=== PATIENT | female | born 1975 | race Caucasian/White ===

== ENCOUNTER 2018-12-11 18:35 | Inpatient (IN) | payer BC ==
[2018-12-11] MEDS ORDERED: Nalbuphine 10 MG/1 ML Vial IVPUSH PRN (18:48)
[2018-12-11] MEDS ORDERED: Ampicillin 2 GM in Sodium Chloride 0.9% 100 ML IV ONE (18:48)
[2018-12-11] MEDS ORDERED: Sodium Chloride 0.9% 10 ML Syringe FLUSH PRN (18:48)
[2018-12-11] MEDS ORDERED: Lactated Ringers 1,000 ML ONE (18:54)
[2018-12-11] MEDS ORDERED: Ampicillin 2 GM AdvVial IV ONE (18:54)
[2018-12-11] MEDS ORDERED: Oxytocin/Lactated Ringers 10 UNIT/1,000 ML BAG IV SCH ×2 (19:00→21:46)
[2018-12-11] MEDS ORDERED: Lactated Ringers 1,000 ML IV SCH (19:00)
--- NOTE | 2018-12-11 19:13 | PCM.LDHP ---
L&D History of Present Illness - General Date of Service: 12/11/18 Admit Problem/Dx: Patient Status Order with Admit Dx/Problem 12/11/18 18:48 Patient Status [ADT] Routine Admission Diagnosis/Problem Admission Diagnosis/Problem Active labor Source of Information: Patient History Limitations: Reports: No Limitations - History of Present Illness Introduction:: Roberta Morel is a 43 year old female at 38 weeks 3 days by 17 week ultrasound (J[facility] 12/22/2018) who presents with concern for labor. Patient was seen in the clinic earlier today and was noted to be 5 cm dilated but not melony. She reports that after her appointment she started to have increased frequency of contractions and they were getting stronger as well. By the time she arrived to the hospital they were about every 4-5 minutes apart and she was having to breathe through them. She denied any leaking of fluid but was having small amount of pink tinged discharge with the contractions. While she was being admitted she had spontaneous rupture of membranes with clear fluid. She reports good movement since she was seen in the clinic today. Timing/Duration: Reports: gradual onset, getting worse (every 2-4 minutes and getting closer together) Location, : Reports: Abdomen, Pelvic Quality: Reports: Pressure, Throbbing Severity: Severe Improves with: Reports: None Worsens with: Reports: None Associated Symptoms: Reports: vaginal bleeding, vaginal fluid (spontaneous rupture of membranes) Present Illness Comments:: Roberta Morel is a 43-year-old at 38 weeks 3 days by 17 week ultrasound (JIE 12/22/2018) with active labor and spontaneous rupture membranes. She has had regular care with myself starting at 17 weeks gestation. She received TDaP vaccine on 10/23/2018. Her is complicated by: * History of section 1 with successful delivery 3. Desires trial of labor after * GBS bacteriuria and will need antibiotic prophylaxis in labor * Grand multiparity with 8 previous deliveries and 7 vaginal deliveries * Advance maternal age with normal [place] NIPS * Plans to give this child up for adoption. * Tobacco use in with 0.5 PPD. Patient has tried bupropion and nicotine patches during but these did not work well for her. She is interested in trying nicotine patch again and thinks that will work better at this time. * Elevated 1 hour glucose tolerance test with normal 3 hour glucose test * Trichomonas infection in that was treated labs Blood type: O+ Antibody screen: Negative Second trimester hematocrit/hemoglobin: 35.3%/11.1 on 07/18/2018 Platelets: 220 on 07/18/2018 Urine culture: Mixed jessica suggestive of contamination. Subsequent urine culture showed GBS bacteriuria Rubella status: Immune Hepatitis B surface antigen: Negative RPR: Negative HIV: Negative Gonorrhea: Negative Chlamydia: Negative Anatomy ultrasound: Normal anatomy ultrasound completed over the course of 2 ultrasounds. The spine heart and face were not seen initially. Normal on second ultrasound. Anterior placenta. EFW 61st percentile initially and on repeat was 59th percentile. Anatomy ultrasounds were done on 08/19/2018 end 2018. One hour glucose tolerance test: 194 Three-hour glucose tolerance test: Fasting 81, 1 hour 167, 2 hour 109 and 3 hour 84 Third trimester hematocrit/hemoglobin: 34.9%/11.1 on 09/24/2018 Platelets: 231 on 09/24/2018 GBS status: Positive GBS bacteriuria Genetic testing: Normal [place] NIPS testing - Related Data Allergies/Adverse Reactions: Allergies Allergy/AdvReac Type Severity Reaction Status Date / Time No Known Allergies Allergy Verified 12/11/18 18:53 Past Medical History [employer] History: Reports: : 13 Para: 8 Hematologic History: Reports: Anemia - Past Surgical History Female Surgical History: Reports: Section (x 1 in 2005) Social & Family History - Tobacco Use Smoking Status *Q: Current Every Day Smoker Tobacco Use Within Last Twelve Months: Cigarettes Packs/Tins Daily: 0.5 Smoking Cessation Information Provided To Patient: Yes - Tobacco Core Measures Tobacco Use/Smoking Within Last 30 Days: Yes Smoking Frequency Within Last 30 Days: Reports: Five or More Cigarettes Per Day Desires Tobacco Cessation Medication: Yes Desired Tobacco Cessation Medication: Nicotine patch - Alcohol Use Alcohol Use History: No - Recreational Drug Use Recreational Drug Use: Yes Drug Use in Last 12 Months: No - Living Situation & Occupation Living situation: Reports: , with Spouse H&P Review of Systems - Review of Systems: Review Of Systems: See Below General: Denies: Fever, Chills, Malaise, Weakness, Fatigue HEENT: Denies: Headaches, Rhinitis, Post Nasal Drip, Sinus Congestion, Sore Throat, Visual Changes Pulmonary: Reports: Cough. Denies: Shortness of Breath, Wheezing Cardiovascular: Denies: Chest Pain, Palpitations, Dyspnea on Exertion, Orthopnea Gastrointestinal: Denies: Abdominal Pain, Constipation, Diarrhea, Nausea, Vomiting Genitourinary: Denies: Dysuria, Frequency, Burning, Pain, Urgency Musculoskeletal: Reports: Back Pain (And hip pain of ) Skin: Reports: Lesions (Social areas of folliculitis in the inguinal fold). Denies: Rash Psychiatric: Denies: Depression, Anxiety Hematologic/Lymphatic: Reports: Anemia L&D Exam - Exam Exam: See Below - Vital Signs Weight: 103.782 kg - OB Specific Fundal Height In cm: 40 Contraction Duration (sec): 60 Contraction Frequency (min): 2-3 Contraction Intensity: Strong Movement: Active Heart Tones: Present Heart Tones per Min: 150 (+15 x 15 accelerations, recurrent variable decelerations) Heart Rate (FHR) Variability: Moderate (6-25 bmp) Presentation: Vertex Estimated Weight: 7.5-8 pounds by Umair's - Wang Score Wang Score Cervix Position: Anterior Wang Score Consistency: Soft Wang Score Effacement: >80% (100%) Wang Score Dilation: > 5 cm (6 cm on admission) Wang Score 's Station: +1, +2 (+1) Wang Score Total: 13 - Exam General: Alert, Oriented, Moderate Distress (With contractions) HEENT: Conjunctiva Clear, EOMI Neck: Supple, Trachea Midline Lungs: Clear to Auscultation, Normal Respiratory Effort Cardiovascular: Regular Rate, Regular Rhythm GI/Abdominal Exam: Soft, Non-Tender, No Distention, Other (gravid). No: Guarding, Rigid, Rebound Genitourinary: Normal external exam, Other (spontaneous rupture of membranes with large amount of clear fluid shortly after arrival) Extremities: Normal Inspection, No Pedal Edema Skin: Warm, Dry, Intact Psychiatric: Alert, Normal Affect, Normal Mood - Problem List (1) 38 weeks gestation of SNOMED Code(s): 28589888 ICD Code: Z3A.38 - 38 WEEKS GESTATION OF Status: Acute Current Visit: Yes (2) GBS bacteriuria SNOMED Code(s): 38823410 ICD Code: R82.71 - BACTERIURIA Status: Acute Current Visit: Yes (3) Advanced maternal age in multigravida SNOMED Code(s): 164387112 ICD Code: O09.529 - SUPERVISION OF ELDERLY MULTIGRAVIDA, UNSPECIFIED TRIMESTER Status: Acute Current Visit: Yes (4) Tobacco use affecting , antepartum SNOMED Code(s): 770383024, 278066304, 236915900 ICD Code: O99.330 - SMOKING (TOBACCO) COMPLICATING , UNSP TRIMESTER Status: Acute Current Visit: Yes (5) History of delivery, currently SNOMED Code(s): 936514330, 084937038 ICD Code: O34.219 - MATERNAL CARE FOR UNSP TYPE SCAR FROM PREVIOUS DEL Status: Acute Current Visit: Yes (6) History of delivery SNOMED Code(s): 948052479 ICD Code: Z98.891 - HISTORY OF UTERINE SCAR FROM PREVIOUS SURGERY Status: Acute Current Visit: Yes (7) with adoption planned, currently in third trimester SNOMED Code(s): 59443162, 83720693, 481880966 ICD Code: Z34.93 - ENCNTR FOR SUPRVSN OF NORMAL PREG, UNSP, THIRD TRIMESTER Status: Acute Current Visit: Yes (8) Abnormal glucose tolerance test during , antepartum Status: Acute Current Visit: Yes Problem List Initiated/Reviewed/Updated: Yes Orders Last 24hrs: Active Orders 24 hr Category Date Time Status Patient Status [ADT] Routine ADT 12/11/18 18:48 Active Activity as Tolerated [RC] PFP Care 12/11/18 18:48 Active Communication Order [RC] ASDIRECTED Care 12/11/18 18:48 Active Heart Tones [RC] ASDIRECTED Care 12/11/18 18:49 Active Non Stress Test [RC] PER UNIT ROUTINE Care 12/11/18 18:48 Active Notify Provider [RC] PFP Care 12/11/18 18:48 Active Notify Provider [RC] PRN Care 12/11/18 18:48 Active Peripheral IV Care [RC] . DIRECTED Care 12/11/18 18:49 Active Pump Management, Intrathecal [RC] ASDIRECTED Care 12/11/18 18:49 Active Urinary Catheter Assessment [RC] ASDIRECTED Care 12/11/18 18:48 Active Vital Signs [RC] PER UNIT ROUTINE Care 12/11/18 18:48 Active CBC W/O DIFF,HEMOGRAM [HEME] Stat Lab 12/11/18 18:48 Ordered RAPID PLASMA REAGIN,RPR [CHEM] Stat Lab 12/11/18 18:48 Ordered TYPE AND SCREEN [BBK] Stat Lab 12/11/18 18:48 Ordered Ampicillin 1 gm Med 12/11/18 23:00 Active Sodium Chloride 0.9% [Normal Saline] 100 ml IV Q4H Ampicillin 2 gm Med 12/11/18 18:48 Active Sodium Chloride 0.9% [Normal Saline] 100 ml IV ONETIME Lactated Ringers [Ringers, Lactated] 1,000 ml Med 12/11/18 19:00 Active IV ASDIRECTED Nalbuphine [Nubain] Med 12/11/18 18:48 Active 10 mg IVPUSH Q2H PRN Oxytocin/Lactated Ringers [Pitocin in LR 10 Units/1,000 Med 12/11/18 19:00 Active ML] 10 unit in 1,000 ml IV .CONTINUOUS Sodium Chloride 0.9% [Saline Flush] Med 12/11/18 18:48 Active 10 ml FLUSH ASDIRECTED PRN Electronic Heart Tones Ext w TOCO [WOMSER] Oth 12/11/18 18:48 Ordered Routine Electronic Heart Tones Internal [WOMSER] Per Unit Oth 12/11/18 18:48 Ordered Routine Peripheral IV Insertion Adult [OM.PC] Routine Oth 12/11/18 18:48 Ordered Resuscitation Status Routine Resus Stat 12/11/18 18:48 Ordered Medication Orders Ampicillin Sodium 2 gm/ Sodium (Chloride) 100 mls @ 200 mls/hr IV ONETIME ONE Stop: 12/11/18 19:17 Ampicillin Sodium 1 gm/ Sodium (Chloride) 100 mls @ 200 mls/hr IV Q4H MARI Lactated Ringer's (Ringers, Lactated) 1,000 mls @ 100 mls/hr IV ASDIRECTED MARI Oxytocin/Lactated Ringer's (Pitocin In Lr 10 Units/1,000 Ml) 10 unit in 1,000 mls @ 500 mls/hr IV .CONTINUOUS MARI Nalbuphine HCl (Nubain) 10 mg IVPUSH Q2H PRN PRN Reason: Pain Sodium Chloride (Saline Flush) 10 ml FLUSH ASDIRECTED PRN PRN Reason: Keep Vein Open Assessment/Plan Comment:: Refer to observation for spontaneous rupture of membranes Continuous monitoring Place IV and have Lactated Ringer's at 125 ml/hr May have small amounts of regular diet Activity as tolerated May have Nubain or epidural as needed for anesthesia Plans to breast-feed after delivery Start on ampicillin 2 g now and have 1 g every 4 hours after for GBS prophylaxis Consults social work and case management for assistance with adoption process that has been initiated prior to delivery Anticipate vaginal delivery unless otherwise indicated Newton Silva M.D. 7:36 PM 12/11/2018
[2018-12-11] MEDS ORDERED: HYDROmorphone 0.5 MG/0.5 ML Syringe IVPUSH ONE (20:04)
--- NOTE | 2018-12-11 20:33 | PCM.DEL ---
L & D Note - General Info Date of Service: 12/11/18 Mother's Due Date: 12/22/18 - Delivery Note Labor: Spontaneous Delivery Outcome: Livebirth Infant Delivery Method: Spontaneous Vaginal Delivery-Single Presentation: Right Occiput Anterior (SHIKHA) Nuchal Cord: Present (x 1), Reduced Anesthesia Type: None Amniotic Fluid Description: Clear Episiotomy Type: None Laceration: 1st Degree, Perineal (midline, repaired with 3-0 Vicryl) Suture type: Vicryl Suture size: 3-0 Placenta: Intact, Spontaneous Cord: 3 Vessels Estimated Blood Loss: 300 Resuscitation Needed: Yes [place]: Suctioned, Bulb Syringe, Cathether, Stimulated, Warmed, [place] Used, Warmer Used Provider: Newton Silva Score 1 min: 6 Score 5 min: 9 Second Stage Interventions: Reports: Pushing Involuntarily Delivery Comments (Free Text/Narrative):: Stage I: Roberta Morel was admitted for active labor. On admission her cervix was dilated to 6 cm. She was GBS positive and was started on ampicillin for GBS prophylaxis. She received 1 dose prior to delivery. Shortly after admission she had spontaneous rupture membranes with clear fluid. She quickly progressed to complete and pushing. Stage II: On 12/11/2018 she had an uncomplicated vaginal delivery after section of a live male at 19:54. Apgars of 6 & 9. Weight of 3110 g (6 lbs 13.7 oz). Length of 20 inches. There was a single nuchal cord that was reduced prior to delivery. Infant was delivered in SHIKHA position. The cord was doubly clamped and cut by myself. was taken to the warmer for resuscitation. Stage III: She had a spontaneous delivery of an intact placenta in [place] presentation. Three vessel cord. She was given pitocin and fundal massage. She had a first-degree midline perineal laceration that was repaired with 3-0 Vicryl. There were vaginal abrasions on the skin as well that were hemostatic and not repaired. Mom and baby were stable to recovery. EBL of 300 mL. Newton Silva MD 8:28 PM 12/11/2018 - General Info Date of Service: 12/11/18 - Patient Data Weight - Most Recent: 103.782 kg Lab Results Last 24 Hours: Laboratory Results - last 24 hr 12/11/18 12/11/18 Range/Units 19:13 19:13 WBC 10.36 H (3.98-10.04) K/mm3 RBC 5.02 (3.98-5.22) M/mm3 Hgb 11.0 L (11.2-15.7) gm/L Hct 35.1 (34.1-44.9) % MCV 69.9 L (79.4-94.8) fl MCH 21.9 L (25.6-32.2) pg MCHC 31.3 L (32.2-35.5) g/dl RDW Std Deviation 45.4 (36.4-46.3) fL Plt Count 223 (182-369) K/mm3 MPV 12.0 (9.4-12.3) fl Blood Type O POSITIVE Gel Antibody Screen Negative Med Orders - Current: Current Medications Ampicillin Sodium 1 gm/ Sodium (Chloride) 100 mls @ 200 mls/hr IV Q4H MARI Lactated Ringer's (Ringers, Lactated) 1,000 mls @ 100 mls/hr IV ASDIRECTED MARI Last Admin: 12/11/18 19:11 Dose: 100 mls/hr Oxytocin/Lactated Ringer's (Pitocin In Lr 10 Units/1,000 Ml) 10 unit in 1,000 mls @ 500 mls/hr IV .CONTINUOUS MARI Last Admin: 12/11/18 20:14 Dose: 500 mls/hr Nalbuphine HCl (Nubain) 10 mg IVPUSH Q2H PRN PRN Reason: Pain Last Admin: 12/11/18 19:15 Dose: 10 mg Sodium Chloride (Saline Flush) 10 ml FLUSH ASDIRECTED PRN PRN Reason: Keep Vein Open Discontinued Medications Ampicillin Sodium (Ampicillin) Confirm Administered Dose 2 gm IV .STK-MED ONE Stop: 12/11/18 18:55 Hydromorphone HCl (Dilaudid) 0.5 mg IVPUSH ONETIME ONE Stop: 12/11/18 20:05 Last Admin: 12/11/18 20:15 Dose: 0.5 mg Ampicillin Sodium 2 gm/ Sodium (Chloride) 100 mls @ 200 mls/hr IV ONETIME ONE Stop: 12/11/18 19:17 Last Admin: 12/11/18 19:11 Dose: 200 mls/hr Lactated Ringer's (Ringers, Lactated) Confirm Administered Dose 1,000 mls @ as directed .ROUTE .[facility] ONE Stop: 12/11/18 18:55 - Problem List & Annotations (1) 38 weeks gestation of SNOMED Code(s): 89658010 Code(s): Z3A.38 - 38 WEEKS GESTATION OF Status: Acute Current Visit: Yes (2) GBS bacteriuria SNOMED Code(s): 05509897 Code(s): R82.71 - BACTERIURIA Status: Acute Current Visit: Yes (3) Advanced maternal age in multigravida SNOMED Code(s): 968485262 Code(s): O09.529 - SUPERVISION OF ELDERLY MULTIGRAVIDA, UNSPECIFIED TRIMESTER Status: Acute Current Visit: Yes (4) Tobacco use affecting , antepartum SNOMED Code(s): 865897740, 965660205, 220464791 Code(s): O99.330 - SMOKING (TOBACCO) COMPLICATING , UNSP TRIMESTER Status: Acute Current Visit: Yes (5) History of delivery, currently SNOMED Code(s): 420681300, 612263044 Code(s): O34.219 - MATERNAL CARE FOR UNSP TYPE SCAR FROM PREVIOUS DEL Status: Acute Current Visit: Yes (6) History of delivery SNOMED Code(s): 787122499 Code(s): Z98.891 - HISTORY OF UTERINE SCAR FROM PREVIOUS SURGERY Status: Acute Current Visit: Yes (7) with adoption planned, currently in third trimester SNOMED Code(s): 82347341, 76297888, 594115791 Code(s): Z34.93 - ENCNTR FOR SUPRVSN OF NORMAL PREG, UNSP, THIRD TRIMESTER Status: Acute Current Visit: Yes (8) Abnormal glucose tolerance test during , antepartum Status: Acute Current Visit: Yes (9) Vaginal delivery SNOMED Code(s): 077461848 Code(s): O80 - ENCOUNTER FOR FULL-TERM UNCOMPLICATED DELIVERY Status: Acute Current Visit: Yes (10) Vaginal delivery following previous section, delivered SNOMED Code(s): 701290289 Code(s): O34.219 - MATERNAL CARE FOR UNSP TYPE SCAR FROM PREVIOUS DEL Status: Acute Current Visit: Yes (11) First degree perineal laceration during delivery SNOMED Code(s): 001221462 Code(s): O70.0 - FIRST DEGREE PERINEAL LACERATION DURING DELIVERY Status: Acute Current Visit: Yes - Problem List Review Problem List Initiated/Reviewed/Updated: Yes - My Orders Last 24 Hours: My Active Orders 12/11/18 18:48 Patient Status [ADT] Routine Activity as Tolerated [RC] PFP Communication Order [RC] ASDIRECTED Non Stress Test [RC] PER UNIT ROUTINE Notify Provider [RC] PFP Notify Provider [RC] PRN Urinary Catheter Assessment [RC] ASDIRECTED Vital Signs [RC] PER UNIT ROUTINE Nalbuphine [Nubain] 10 mg IVPUSH Q2H PRN Sodium Chloride 0.9% [Saline Flush] 10 ml FLUSH ASDIRECTED PRN Electronic Heart Tones Ext w TOCO [WOMSER] Routine Electronic Heart Tones Internal [WOMSER] Per Unit Routine Peripheral IV Insertion Adult [OM.PC] Routine Resuscitation Status Routine 12/11/18 18:49 Heart Tones [RC] ASDIRECTED Peripheral IV Care [RC] . DIRECTED Pump Management, Intrathecal [RC] ASDIRECTED 12/11/18 19:00 Lactated Ringers [Ringers, Lactated] 1,000 ml IV ASDIRECTED Oxytocin/Lactated Ringers [Pitocin in LR 10 Units/1,000 ML] 10 unit in 1,000 ml IV .CONTINUOUS 12/11/18 19:13 RAPID PLASMA REAGIN,RPR [CHEM] Stat 12/11/18 20:20 Patient Status Manage Transfer [TRANSFER] Routine 12/11/18 23:00 Ampicillin 1 gm Sodium Chloride 0.9% [Normal Saline] 100 ml IV Q4H - Plan Plan:: Admit to inpatient following normal spontaneous vaginal delivery Continue Pitocin per unit protocol following delivery of placenta and lactated Ringer's until tolerating regular diet Regular diet Vitals per unit routine Ibuprofen and Tylenol for pain control Patient plans for bottlefeeding infant. Assist as needed with mother and the adoptive parents. Continue to monitor lochia Social work and case management consult to assist with completion of the adoption process Anticipate discharge home on day #1 or #2 Newton Silva MD 8:28 PM 12/11/2018
[2018-12-11] MEDS ORDERED: Hydrocortisone Acetate 25 MG Supp RECTAL PRN (21:46)
[2018-12-11] MEDS ORDERED: Docusate Sodium 100 MG Cap PO PRN (21:46)
[2018-12-11] MEDS ORDERED: Acetaminophen 325 MG Tab PO PRN (21:46)
[2018-12-11] MEDS ORDERED: Witch Hazel Medicated Pads 40/Jar TOP PRN (21:46)
[2018-12-11] MEDS ORDERED: Benzocaine/Menthol 20%-0.5% Spray 56 GM Canister TOP PRN (21:46)
[2018-12-11] MEDS ORDERED: Lanolin 100% Cream 7 GM Tube TOP PRN (21:46)
[2018-12-11] MEDS ORDERED: Magnesium Hydroxide 400 MG/5 ML Susp 30 ML Cup PO PRN (21:46)
[2018-12-11] MEDS: Nicotine 21 MG/24 Hr Patch TRDERM SCH (22:38)
[2018-12-11] MEDS: Ibuprofen 600 MG Tab PO PRN (22:39)
[2018-12-11] MEDS ORDERED: Ampicillin 1 GM in Sodium Chloride 0.9% 100 ML IV SCH (23:00)
--- NOTE | 2018-12-12 08:09 | PCM.SN ---
- Free Text/Narrative Note: Post Progress Note PPD # 1 Subjective: Doing well overall. Ambulating without difficulty. Lochia minimal. Voiding without difficulty. Tolerating regular diet without nausea or vomiting. Pain controlled with oral medications. Bottlefeeding with minimal difficulty. Objective: Vitals: Vital Signs - 24 hr 12/11/18 12/12/18 18:48 01:49 Temperature 36.2 C Temperature [ 37.4 C Temporal] Pulse, 73 Peripheral Pulse, 85 Peripheral [ Pulse Oximetry] Respiratory 14 16 Rate Blood Pressure 125/88 Blood Pressure 143/80 H [Left Arm] O2 Sat by Pulse 99 97 Oximetry Physical Exam General: Alert and oriented, no acute distress Lungs: Clear to auscultation bilaterally Heart: Regular rate and rhythm Abdomen: Soft, minimal appropriate tenderness, non-distended, fundus midline, nontender, and at the umbilicus Extremities: Trace edema in bilateral lower extremities to mid shins Laboratory Tests 12/11/18 12/11/18 Range/Units 19:13 19:13 WBC 10.36 H (3.98-10.04) K/mm3 RBC 5.02 (3.98-5.22) M/mm3 Hgb 11.0 L (11.2-15.7) gm/L Hct 35.1 (34.1-44.9) % MCV 69.9 L (79.4-94.8) fl MCH 21.9 L (25.6-32.2) pg MCHC 31.3 L (32.2-35.5) g/dl RDW Std Deviation 45.4 (36.4-46.3) fL Plt Count 223 (182-369) K/mm3 MPV 12.0 (9.4-12.3) fl Blood Type O POSITIVE Gel Antibody Screen Negative ASSESSMENT: 43-year-old female G 13 [id number] s/p vaginal delivery after section PPD #1 , complicated by GBS bacteriuria with one dose for antibiotic prophylaxis prior to delivery, advanced maternal age with normal [place] NIPS, patient giving child up for adoption, tobacco use in currently using nicotine patch and working well, Trichomonas infection in and elevated 1 hour glucose test with normal 3 hour test PLAN: Doing well Bottle feeding with minimal difficulty. Assist as needed Lochia minimal. Continue to monitor for appropriate lochia. Continue routine care Social work and case management consult for completion of adoption process Patient using nicotine patch for tobacco use in . She reports that this is working well for her. Discharge home today Newton Silva MD 8:08 AM 12/12/2018
--- NOTE | 2018-12-12 08:18 | PCM.DCSUM1 ---
Discharge Summary - Hospital Course Free Text/Narrative:: - Delivery Note Labor: Spontaneous Delivery Outcome: Livebirth Infant Delivery Method: Spontaneous Vaginal Delivery-Single Presentation: Right Occiput Anterior (SHIKHA) Nuchal Cord: Present (x 1), Reduced Anesthesia Type: None Amniotic Fluid Description: Clear Episiotomy Type: None Laceration: 1st Degree, Perineal (midline, repaired with 3-0 Vicryl) Suture type: Vicryl Suture size: 3-0 Placenta: Intact, Spontaneous Cord: 3 Vessels Estimated Blood Loss: 300 Resuscitation Needed: Yes : Suctioned, Bulb Syringe, Cathether, Stimulated, Warmed, [place] Used, Warmer Used Provider: Newton Silva Score 1 min: 6 Score 5 min: 9 Second Stage Interventions: Reports: Pushing Involuntarily Delivery Comments (Free Text/Narrative):: Stage I: Roberta Morel was admitted for active labor. On admission her cervix was dilated to 6 cm. She was GBS positive and was started on ampicillin for GBS prophylaxis. She received 1 dose prior to delivery. Shortly after admission she had spontaneous rupture membranes with clear fluid. She quickly progressed to complete and pushing. Stage II: On 12/11/2018 she had an uncomplicated vaginal delivery after section of a live male infant at 19:54. Apgars of 6 & 9. Weight of 3110 g (6 lbs 13.7 oz). Length of 20 inches. There was a single nuchal cord that was reduced prior to delivery. was delivered in SHIKHA position. The cord was doubly clamped and cut by myself. was taken to the warmer for resuscitation. Stage III: She had a spontaneous delivery of an intact placenta in [place] presentation. Three vessel cord. She was given pitocin and fundal massage. She had a first-degree midline perineal laceration that was repaired with 3-0 Vicryl. There were vaginal abrasions on the skin as well that were hemostatic and not repaired. Mom and baby were stable to recovery. EBL of 300 mL. HPI Initial Comments: - Delivery Note Labor: Spontaneous Delivery Outcome: Livebirth Delivery Method: Spontaneous Vaginal Delivery-Single Presentation: Right Occiput Anterior (SHIKHA) Nuchal Cord: Present (x 1), Reduced Anesthesia Type: None Amniotic Fluid Description: Clear Episiotomy Type: None Laceration: 1st Degree, Perineal (midline, repaired with 3-0 Vicryl) Suture type: Vicryl Suture size: 3-0 Placenta: Intact, Spontaneous Cord: 3 Vessels Estimated Blood Loss: 300 Resuscitation Needed: Yes [place]: Suctioned, Bulb Syringe, Cathether, Stimulated, Warmed, [place] Used, Warmer Used Provider: Newton Silva Score 1 min: 6 Score 5 min: 9 Second Stage Interventions: Reports: Pushing Involuntarily Delivery Comments (Free Text/Narrative):: Stage I: Roberta Morel was admitted for active labor. On admission her cervix was dilated to 6 cm. She was GBS positive and was started on ampicillin for GBS prophylaxis. She received 1 dose prior to delivery. Shortly after admission she had spontaneous rupture membranes with clear fluid. She quickly progressed to complete and pushing. Stage II: On 12/11/2018 she had an uncomplicated vaginal delivery after section of a live male infant at 19:54. Apgars of 6 & 9. Weight of 3110 g (6 lbs 13.7 oz). Length of 20 inches. There was a single nuchal cord that was reduced prior to delivery. was delivered in SHIKHA position. The cord was doubly clamped and cut by myself. Infant was taken to the warmer for resuscitation. Stage III: She had a spontaneous delivery of an intact placenta in [place] presentation. Three vessel cord. She was given pitocin and fundal massage. She had a first-degree midline perineal laceration that was repaired with 3-0 Vicryl. There were vaginal abrasions on the skin as well that were hemostatic and not repaired. Mom and baby were stable to recovery. EBL of 300 mL. Brief History: - Delivery Note. Labor: Spontaneous. Delivery Outcome: Livebirth. Delivery Method: Spontaneous Vaginal Delivery-Single. Presentation: Right Occiput Anterior (SHIKHA). Nuchal Cord: Present (x 1), Reduced. Anesthesia Type: None. Amniotic Fluid Description: Clear. Episiotomy Type: None. Laceration: 1st Degree, Perineal (midline, repaired with 3-0 Vicryl). Suture type: Vicryl. Suture size: 3-0. Placenta: Intact, Spontaneous. Cord: 3 Vessels. Estimated Blood Loss: 300. Resuscitation Needed : Yes. : Suctioned, Bulb Syringe, Cathether, Stimulated, Warmed, [place] Used, Warmer Used. Provider: Newton Silva. Score 1 min : 6. Score 5 min: 9. Second Stage Interventions: Reports: Pushing Involuntarily. Delivery Comments (Free Text/Narrative):: Stage I: Roberta Morel was admitted for active labor. On admission her cervix was dilated to 6 cm. She was GBS positive and was started on ampicillin for GBS prophylaxis. She received 1 dose prior to delivery. Shortly after admission she had spontaneous rupture membranes with clear fluid. She quickly progressed to complete and pushing. Stage II: On 12/11/2018 she had an uncomplicated vaginal delivery after section of a live male at 19:54. Apgars of 6 & 9. Weight of 3110 g (6 lbs 13.7 oz). Length of 20 inches. There was a single nuchal cord that was reduced prior to delivery. Infant was delivered in SHIKHA position. The cord was doubly clamped and cut by myself. was taken to the warmer for resuscitation. Stage III: She had a spontaneous delivery of an intact placenta in [place] presentation. Three vessel cord. She was given pitocin and fundal massage. She had a first-degree midline perineal laceration that was repaired with 3-0 Vicryl. There were vaginal abrasions on the skin as well that were hemostatic and not repaired. Mom and baby were stable to recovery. EBL of 300 mL. Diagnosis: Stroke: No - Discharge Data Discharge Date: 12/12/18 Discharge Disposition: Home, Self-Care 01 Condition: Good - Discharge Diagnosis/Problem(s) (1) 38 weeks gestation of SNOMED Code(s): 40438019 ICD Code: Z3A.38 - 38 WEEKS GESTATION OF Status: Acute Current Visit: Yes (2) GBS bacteriuria SNOMED Code(s): 52613816 ICD Code: R82.71 - BACTERIURIA Status: Acute Current Visit: Yes (3) Advanced maternal age in multigravida SNOMED Code(s): 604335689 ICD Code: O09.529 - SUPERVISION OF ELDERLY MULTIGRAVIDA, UNSPECIFIED TRIMESTER Status: Acute Current Visit: Yes (4) Tobacco use affecting , antepartum SNOMED Code(s): 084438622, 241287605, 928947958 ICD Code: O99.330 - SMOKING (TOBACCO) COMPLICATING , UNSP TRIMESTER Status: Acute Current Visit: Yes (5) History of delivery, currently SNOMED Code(s): 999813370, 926002798 ICD Code: O34.219 - MATERNAL CARE FOR UNSP TYPE SCAR FROM PREVIOUS DEL Status: Acute Current Visit: Yes (6) History of delivery SNOMED Code(s): 164116661 ICD Code: Z98.891 - HISTORY OF UTERINE SCAR FROM PREVIOUS SURGERY Status: Acute Current Visit: Yes (7) with adoption planned, currently in third trimester SNOMED Code(s): 37567592, 75800981, 710654595 ICD Code: Z34.93 - ENCNTR FOR SUPRVSN OF NORMAL PREG, UNSP, THIRD TRIMESTER Status: Acute Current Visit: Yes (8) Abnormal glucose tolerance test during , antepartum Status: Acute Current Visit: Yes (9) Vaginal delivery SNOMED Code(s): 816823150 ICD Code: O80 - ENCOUNTER FOR FULL-TERM UNCOMPLICATED DELIVERY Status: Acute Current Visit: Yes (10) Vaginal delivery following previous section, delivered SNOMED Code(s): 609163648 ICD Code: O34.219 - MATERNAL CARE FOR UNSP TYPE SCAR FROM PREVIOUS DEL Status: Acute Current Visit: Yes (11) First degree perineal laceration during delivery SNOMED Code(s): 791802961 ICD Code: O70.0 - FIRST DEGREE PERINEAL LACERATION DURING DELIVERY Status: Acute Current Visit: Yes - Patient Summary/Data Complications: None Consults: Consultations 12/11/18 21:46 Consult to Case Management/Regional Extension Service Specialist [CONS] Routine Hospital Course: Roberta Morel was admitted for active labor. On admission her cervix was dilated to 6 cm. She was GBS positive with GBS bacteriuria. She was started on ampicillin and received a total of 1 dose prior to delivery. She had spontaneous rupture of membranes shortly after admission with clear fluid. She progressed to complete and began pushing. On 12/11/2018 she had a uncomplicated vaginal delivery after section of a live male infant at 19:54. Apgars of 6 and 9. Weight of 3110 g (6 pounds 13.7 ounces). Her course was uneventful. Her pain was well controlled and she had minimal lochia. She was ambulating, tolerating a regular diet and voiding normally. She was bottlefeeding with minimal difficulty. She was afebrile and her hematocrit was 35.1 on admission. Patient is planning to give this child up for adoption. Patient will work with case management and transition social worker to complete the adoption process prior to discharge. She desired to be discharged home on the morning of PPD #1. Her blood type is O+. - Patient Instructions Diet: Regular Diet as Tolerated Activity: Apply Ice, As Tolerated Activity, Other: Nothing in the vagina for 6 weeks Driving: May Drive Today Showering/Bathing: May Shower Notify Provider of: Fever, Increased Pain, Swelling and Redness, Drainage, Nausea and/or Vomiting Other/Special Instructions: Please contact your physician's office if you have heavy vaginal bleeding enough to soak a pad in less than an hour for several hours. Monitor for any signs of an infection in the breasts with severe pain or redness of the breast. To reduce milk production recommend use of a tight fitting sports bra or Esau bandage wrapped. Also recommend use of cold compress. Avoid nipple stimulation to reduce milk production as well. - Discharge Plan *PRESCRIPTION DRUG MONITORING PROGRAM REVIEWED*: Not Applicable *COPY OF PRESCRIPTION DRUG MONITORING REPORT IN PATIENT FRIDA: Not Applicable Home Medications: Home Meds Vit No.130/Iron/FA [ Tablet] 1 each PO DAILY 12/11/18 [History] Acetaminophen [Tylenol] 650 mg PO Q6H PRN tablet 12/12/18 [Rx] Benzocaine/Menthol [Dermoplast Pain Relief [place]] 1 spray TOP ASDIRECTED PRN canister 12/12/18 [Rx] Docusate Sodium [Colace] 100 mg PO BID PRN cap 12/12/18 [Rx] Hydrocortisone Acetate [Anucort-HC] 25 mg RECTAL BID PRN supp 12/12/18 [Rx] Ibuprofen [Motrin] 600 mg PO Q6H PRN tablet 12/12/18 [Rx] Nicotine [Habitrol] 21 mg TRDERM DAILY patch 12/12/18 [Rx] Remove Patch 1 ea TRDERM DAILY each 12/12/18 [Rx] [place] Gloria [Tucks] 1 pad TOP ASDIRECTED PRN pad 12/12/18 [Rx] Patient Handouts: Vaginal Delivery, Care After, Care of a Perineal Tear Referrals: Newton Silva MD [Primary Care Provider] - (Follow-up in 2 weeks for routine visit or earlier as needed.) - Discharge Summary/Plan Comment DC Time >30 min.: No - Patient Data Vitals - Most Recent: Last Vital Signs Temp 36.2 C 12/12/18 01:49 Pulse 73 12/12/18 01:49 Resp 16 12/12/18 01:49 BP 125/88 12/12/18 01:49 Pulse Ox 97 12/12/18 01:49 Weight - Most Recent: 103.782 kg Lab Results - Last 24 hrs: Laboratory Results - last 24 hr 12/11/18 12/11/18 Range/Units 19:13 19:13 WBC 10.36 H (3.98-10.04) K/mm3 RBC 5.02 (3.98-5.22) M/mm3 Hgb 11.0 L (11.2-15.7) gm/L Hct 35.1 (34.1-44.9) % MCV 69.9 L (79.4-94.8) fl MCH 21.9 L (25.6-32.2) pg MCHC 31.3 L (32.2-35.5) g/dl RDW Std Deviation 45.4 (36.4-46.3) fL Plt Count 223 (182-369) K/mm3 MPV 12.0 (9.4-12.3) fl Blood Type O POSITIVE Gel Antibody Screen Negative Med Orders - Current: Current Medications Acetaminophen (Tylenol) 650 mg PO Q6H PRN PRN Reason: mild pain or fever Benzocaine/Menthol (Dermoplast Pain Relief [place]) 0 gm TOP ASDIRECTED PRN PRN Reason: Perineal Comfort Measure Last Admin: 12/11/18 22:40 Dose: 1 can Docusate Sodium (Colace) 100 mg PO BID PRN PRN Reason: Constipation Emollient Ointment (Lansinoh Hpa) 0 gm TOP ASDIRECTED PRN PRN Reason: Sore Nipples Hydrocortisone Acetate (Anucort-Hc) 25 mg RECTAL BID PRN PRN Reason: Hemorrhoid pain Oxytocin/Lactated Ringer's (Pitocin In Lr 10 Units/1,000 Ml) 10 unit in 1,000 mls @ 100 mls/hr IV TITRATE MARI; Protocol Ibuprofen (Motrin) 600 mg PO Q6H PRN PRN Reason: Mild pain or fever Last Admin: 12/11/18 22:39 Dose: 600 mg Magnesium Hydroxide (Milk Of Magnesia) 30 ml PO BEDTIME PRN PRN Reason: Constipation Miscellaneous Information (Remove Patch) 1 ea TRDERM DAILY [facility] Nicotine (Habitrol) 21 mg TRDERM DAILY [facility] Last Admin: 12/11/18 22:38 Dose: 21 mg Prenat Multivit/[place]/Iron/Folic Ac ( Plus Iron) 1 each PO DAILY [facility] Rik Castro (Tucks) 1 pad TOP ASDIRECTED PRN PRN Reason: Perineal Comfort Measure Last Admin: 12/11/18 22:41 Dose: 1 tub Discontinued Medications Ampicillin Sodium (Ampicillin) Confirm Administered Dose 2 gm IV .STK-MED ONE Stop: 12/11/18 18:55 Hydromorphone HCl (Dilaudid) 0.5 mg IVPUSH ONETIME ONE Stop: 12/11/18 20:05 Last Admin: 12/11/18 20:15 Dose: 0.5 mg Ampicillin Sodium 2 gm/ Sodium (Chloride) 100 mls @ 200 mls/hr IV ONETIME ONE Stop: 12/11/18 19:17 Last Admin: 12/11/18 19:11 Dose: 200 mls/hr Ampicillin Sodium 1 gm/ Sodium (Chloride) 100 mls @ 200 mls/hr IV Q4H [facility] Lactated Ringer's (Ringers, Lactated) 1,000 mls @ 100 mls/hr IV ASDIRECTED [facility] Last Admin: 12/11/18 19:11 Dose: 100 mls/hr Oxytocin/Lactated Ringer's (Pitocin In Lr 10 Units/1,000 Ml) 10 unit in 1,000 mls @ 500 mls/hr IV .CONTINUOUS MARI Last Admin: 12/11/18 20:14 Dose: 500 mls/hr Lactated Ringer's (Ringers, Lactated) Confirm Administered Dose 1,000 mls @ as directed .ROUTE .STK-MED ONE Stop: 12/11/18 18:55 Nalbuphine HCl (Nubain) 10 mg IVPUSH Q2H PRN PRN Reason: Pain Last Admin: 12/11/18 19:15 Dose: 10 mg Sodium Chloride (Saline Flush) 10 ml FLUSH ASDIRECTED PRN PRN Reason: Keep Vein Open
[2018-12-12] MEDS ORDERED: Prenatal Multivitamin with Calcium/Folic Acid/Iron Tab PO SCH (09:00)
[2018-12-12] MEDS: Ibuprofen 600 MG Tab PO PRN (09:22)
[2018-12-12] MEDS: Nicotine 21 MG/24 Hr Patch TRDERM SCH (09:24)
== END 2018-12-12 12:45 | disposition home or self-care (01) | DRG 560 ==
LOC: JD.OB 18:35 → JD.OBCHECK 18:35 → JD.OB 18:48 → OBSVTOIN 19:54
PROVIDERS: ADMIT Obstetrics & Gynecology; ATTEND Obstetrics & Gynecology
PROC: 10E0XZZ Delivery of Products of Conception, External Approach (ICD-10-PCS; principal; 2018-12-11)
PROC: 0HQ9XZZ Repair Perineum Skin, External Approach (ICD-10-PCS; 2018-12-11)
DX: O99.824 Streptococcus B carrier state complicating childbirth (principal); O69.81X0 Labor and delivery complicated by cord around neck, without compression, not applicable or unspecified; O70.0 First degree perineal laceration during delivery; O99.334 Smoking (tobacco) complicating childbirth; F17.210 Nicotine dependence, cigarettes, uncomplicated; Z3A.38 38 weeks gestation of pregnancy; Z37.0 Single live birth; Z98.891 History of uterine scar from previous surgery; Z79.899 Other long term (current) drug therapy
CPT/HCPCS: 36415; 59025; 59409; 85027; 86592; 86850; 86900; 86901; A9270-GY; J0290; J1170; J2300; J2590; J7030; J7120